=== PATIENT | male | born 1960 | race Caucasian/White ===

== ENCOUNTER 2023-06-03 08:33 | Outpatient (CLI) | payer BC | END 2023-06-03 08:34 | disposition home or self-care (01) | LOC: CSHMRI 08:33 | PROVIDERS: ATTEND Urology | DX: C61 Malignant neoplasm of prostate (principal); M89.9 Disorder of bone, unspecified | CPT/HCPCS: 72197 ==

== ENCOUNTER 2024-05-16 10:03 | Outpatient (CLI) | payer BC ==
[2024-05-16] MEDS ORDERED: Magnevist 469MG/ML 20 ML VIAL ONE (11:15)
== END 2024-05-16 10:04 | disposition home or self-care (01) ==
LOC: CSHMRI 10:03
PROVIDERS: ATTEND Orthopaedic Surgery
DX: D49.2 Neoplasm of unspecified behavior of bone, soft tissue, and skin (principal)
CPT/HCPCS: 36415; 82565